=== PATIENT | male | born 1990 | race African-American/Black ===

== ENCOUNTER 2024-06-13 15:24 | Inpatient (IN) | payer OTHER ==
[2024-06-13 16:03] VITALS: BMI 20.6
[2024-06-13] MEDS ORDERED: POLYETHYLENE GLYCOL (HEALTHYLAX) 3350 17 GM PACKET PO PRN (16:12)
[2024-06-13] MEDS ORDERED: BENZONATATE 200 MG CAPSULE PO PRN (16:12)
[2024-06-13] MEDS ORDERED: NALOXONE (NARCAN) HCL 4 MG/0.1 ML SPRAY NS PRN (16:12)
[2024-06-13] MEDS ORDERED: MAGNESIUM HYDROX 2400MG/30ML ORAL SUSPENSION 30 ML CUP PO PRN (16:12)
[2024-06-13] MEDS ORDERED: METHOCARBAMOL 500 MG TABLET PO PRN (16:12)
[2024-06-13] MEDS ORDERED: MAG HYDROX/AL HYDROX/SIMETH 30 ML UNIT-DOSE CUP PO PRN (16:12)
[2024-06-13] MEDS ORDERED: IBUPROFEN 400 MG TABLET (FP) PO PRN (16:12)
[2024-06-13] MEDS ORDERED: BISMUTH SUBSALICYLATE 524 MG/30 ML PO PRN (16:12)
[2024-06-13] MEDS ORDERED: hydrOXYzine PAMOATE 25 MG CAPSULE (FP) PO PRN (16:12)
[2024-06-13] MEDS ORDERED: IBUPROFEN 600 MG TABLET (FP) PO PRN (16:12)
[2024-06-13] MEDS ORDERED: NICOTINE POLACRILEX 2 MG GUM BUC PRN (16:12)
[2024-06-13] MEDS ORDERED: BENZOCAINE/MENTHOL (CHLORASEPTIC ) LOZENGE MM PRN (16:12)
[2024-06-13] MEDS ORDERED: ONDANSETRON *ODT* 4 MG TABLET SL PRN (16:12)
[2024-06-13] MEDS ORDERED: guaiFENesin 600 MG TABLET.ER (FP) PO PRN (16:12)
[2024-06-13] MEDS ORDERED: ACETAMINOPHEN 325 MG TABLET (FP) PO PRN (16:12)
[2024-06-13] MEDS ORDERED: LOPERAMIDE HCL 2 MG CAPSULE PO PRN (16:12)
[2024-06-13] MEDS: NALTREXONE HCL 50 MG TABLET PO ONE (20:04)
[2024-06-13] MEDS: MELATONIN 5 MG TABLETS PO SCH (22:48)
[2024-06-13] MEDS: THIAMINE 100 MG TABLET PO SCH (22:48)
[2024-06-13] MEDS: MIRTAZAPINE 15 MG TABLET (FP) PO SCH (22:48)
[2024-06-14] MEDS: NICOTINE 14 MG/24 HOURS TOPICAL PATCH TD SCH (10:42)
[2024-06-14] MEDS: PRENATAL VITAMINS W/ FOLIC ACID TABLET (FP) PO SCH (10:43)
[2024-06-14] MEDS: NALTREXONE HCL 50 MG TABLET PO SCH (10:44)
[2024-06-14 11:31] LABS: CHLORIDE 103 mmol/L (98-107); POTASSIUM 3.5 mmol/L (3.5-5.1); SODIUM 139 mmol/L (136-145)
[2024-06-14 11:33] LABS: HEMATOCRIT 39.2 % (35.4-49); HEMOGLOBIN 13.4 GM/dL (11.7-16.9); MCH 31.1 pg (25.7-33.7); MCHC 34.3 g/dl (32.0-35.9); MEAN CELL VOLUME 90.7 fl (80-96); MEAN PLT VOLUME 8.1 fl (7.5-11.1); PLATELET COUNT 261 10^3/uL (134-434); RBC 4.32 M/mm3 (4.00-5.60); RDW 13.9 % (11.9-15.9); WHITE BLOOD COUNT 5.5 K/mm3 (4.0-10.0)
[2024-06-14 11:39] LABS: ALBUMIN 3.7 g/dl (3.4-5.0); ANION GAP 9 mmol/L (4-13); BLOOD UREA NITROGEN 7.9 mg/dL (7-18); CALCIUM 8.7 mg/dL (8.5-10.1); CO2 28 mmol/L (21-32); GLUCOSE,RANDOM 71 mg/dL (74-106)
[2024-06-14 11:42] LABS: CREATININE 0.8 mg/dL (0.55-1.3)
[2024-06-14 11:43] LABS: BILIRUBIN,TOTAL 1.7 mg/dL (0.2-1); SGOT/AST 63 U/L (15-37); SGPT/ALT 31 U/L (13-61); TOT PROT 6.8 g/dl (6.4-8.2)
[2024-06-14 11:45] LABS: ALK PHOS 95 U/L (45-117)
[2024-06-14] MEDS: DICYCLOMINE HCL 10 MG CAPSULE PO PRN (12:39)
[2024-06-14] MEDS ORDERED: chlordiazePOXIDE HCL 25 MG CAPSULE PO PRN (13:22)
[2024-06-14] MEDS: LORazepam 2 MG/ML SDV VIAL IM ONE (13:45)
[2024-06-14] MEDS: chlordiazePOXIDE HCL 25 MG CAPSULE PO SCH (17:24)
[2024-06-14] MEDS ORDERED: SUVOREXANT 10 MG TABLET PO PRN (22:00)
[2024-06-15 13:55] VITALS: BP 115/79; PULSE 60; RESP 16; TEMP 97.6
[2024-06-16] MEDS ORDERED: chlordiazePOXIDE HCL 25 MG CAPSULE PO SCH (05:00)
[2024-06-17] MEDS ORDERED: chlordiazePOXIDE HCL 10 MG CAPSULE PO PRN
[2024-06-17] MEDS ORDERED: chlordiazePOXIDE HCL 10 MG CAPSULE PO SCH (05:00)
[2024-06-18] MEDS ORDERED: chlordiazePOXIDE HCL 10 MG CAPSULE PO SCH (05:00)
[2024-06-19] MEDS ORDERED: chlordiazePOXIDE HCL 10 MG CAPSULE PO ONE (05:00)
== END 2024-06-15 13:20 | disposition left against medical advice (07) | DRG 770 ==
LOC: YASAS 15:24 → Y3N 18:22
PROVIDERS: ADMIT Allergy & Immunology; ATTEND Allergy & Immunology
PROC: HZ2ZZZZ Detoxification Services for Substance Abuse Treatment (ICD-10-PCS; principal; 2024-06-13)
DX: F10.230 Alcohol dependence with withdrawal, uncomplicated (principal); F14.20 Cocaine dependence, uncomplicated; F17.210 Nicotine dependence, cigarettes, uncomplicated; F32.A Depression, unspecified; Z59.01 Sheltered homelessness
CPT/HCPCS: 36415; 80053; 80305; 80307; 85027; 86780; 93005; 93010